=== PATIENT | male | born 1970 | race Caucasian/White ===

== ENCOUNTER 2020-09-08 14:53 | Emergency (ER) | payer OTHER, SELFPAY ==
[2020-09-08 15:29] VITALS: BP 154/114; PULSE 113; RESP 18; TEMP 35.4; O2SAT 99; BMI 23.6
--- NOTE | 2020-09-08 15:32 | PC.NURSE ---
Per EMS, pt was found walking, without a coat. When PD spoke with pt, pt unable to state where he was coming from or where he was going. Per EMS, pt is aXo x4. Pt, on arrival, stated he did not need to be in crisis unit, but was cooperative w/ changeover. VS from EMS: 155/100, p107. 02 sat 97. Pt denied any medical or surgical hx.
--- NOTE | 2020-09-08 15:55 | PC.NURSE ---
Patient is unable to provide any contact information, however, reported he gets his medication from [facility], pharmacy called/spoke with Germ[facility] and pharmacy provided contact phone numbers as requested of the patient, and [phone], both number tried twice with no response.
--- NOTE | 2020-09-08 18:07 | ED.GENADULT ---
HPI - General Adult General Chief complaint: Altered Mental Status Stated complaint: SECTION 12,FOUND WALKING BY POLICE Time Seen by Provider: 09/08/20 18:00 Source: patient Mode of arrival: ambulatory Limitations: no limitations History of Present Illness HPI narrative: Patient comes emergency room brought by police. Patient states that he recently moved from [place] with his , he is new in [facility], patient went out for a walk in [place] to look for an apartment, patient got lost, found a police station, showed him his ID, told him that he is new in town and needed directions to get back to the place where he is currently staying. Patient Section 12 time and brought him here. Patient is calm, cooperative, upset that he was brought in to the emergency room on a Section 12 when he only ask for directions. Patient is not suicidal, not homicidal, we have no records from the patient. Patient states that he has never attempted to hurt himself or others. Related Data Home Medications Medication Instructions Recorded Confirmed aripiprazole [Abilify] 20 mg PO BEDTIME 09/08/20 09/08/20 trazodone 225 mg PO BEDTIME 09/08/20 09/08/20 Allergies Allergy/AdvReac Type Severity Reaction Status Date / Time No Known Allergies Allergy Verified 09/08/20 15:38 Review of Systems Review of Systems: Constitutional : No Weight loss, No Fever, No Chills, No Night Sweats, No Fatigue, No Malaise ENT/Mouth : No Hearing loss, No Ear Pain, No Nasal Congestion, No Sinus Pain, No Hoarseness, No sore throat, No Rhinorrhea, No Swallowing Difficulty Eyes: No Eye Pain, No Swelling, No Redness, No Foreign Body, No Discharge, No Vision Changes Cardiovascular : No Chest Pain, No SOB, No Dyspnea on Exertion, No Orthopnea, No Edema, No Palpitations Respiratory : No Cough, No Sputum, No Wheezing, No Smoke Exposure, No Dyspnea Gastrointestinal : No Nausea, No Vomiting, No Diarrhea, No Constipation, No abdominal Pain, No Hematochezia, No Melena Genitourinary : no irregular bleeding, No Dysuria, No Urinary Frequency, No Hematuria, No Urinary Incontinence, No Urgency, No Flank Pain, No Urinary Flow Changes, No Hesitancy Musculoskeletal : No joint pain, No Myalgias, No Joint Swelling Skin : No Skin Lesions, No rash Neuro : No Weakness, No Numbness, No Paresthesias, No Loss of Consciousness, No Dizziness, No Headache Psych : No Anxiety/Panic, No Depression, No SI/HI/AH/VH, No Social Issues, Heme/Lymph: No Bruising, No Bleeding,No Lymphadenopathy Endocrine : No Polyuria, No Polydipsia, No Temperature Intolerance [facility], [facility] Social History Social History Advance Directives: No Advance Directives Information Provided: Yes Physical Exam Vital Signs: Vital Signs: Last Vital Signs Temp 95.7 F L 09/08/20 15:29 Pulse 113 H 09/08/20 15:29 Resp 18 09/08/20 15: BP 154/114 H 09/08/20 15: Pulse Ox 99 09/08/20 15:29 Body Mass Index 23.6 Appearance: Alert. Oriented X3. No acute distress. Eyes: Pupils equal, round and reactive to light. ENT: Pharynx normal. Neck: Normal inspection. Neck supple. No lymph nodes noted. No crepitus CVS: Normal heart rate and rhythm. Pulses normal. Normal S1 and S2 Respiratory: No respiratory distress. Breath sounds normal. No Wheezing. No rales Abdomen: Soft and nontender. No rigidity. No distention. good BS x4 Skin: Skin warm and dry. Normal skin color. Normal skin turgor. Extremities: No lower extremity edema. No lower extremity edema. No Lacerations. No Rash Neuro: Oriented X 3. No motor deficit. No sensory deficit. Moving all extermities. No slurred speech. Course Course Course Narrative: Patient is alert and oriented x4, normal speech, normal thought process, not suicidal or homicidal. Patient requesting to be discharged, he is wants to get home. After speaking with the patient, I do not see any reason to hold the patient in the behavioral health pod Discharge Plan Discharge Clinical Impression: Normal physical exam Patient Disposition: Home, Self-Care Prescriptions: No Action trazodone 150 mg Tablet 225 mg PO BEDTIME RF: 0 aripiprazole [Abilify] 20 mg Tablet 20 mg PO BEDTIME RF: 0 Interventions: ED Discharge Assessment Last Done: 09/08/20 18:10
[2020-09-08 18:21] LABS: Glucose Urine UA NEG (NEG); Leukocyte Esterase Urine NEG (NEG); Nitrite Urine NEG (NEG); PH 5.5 (5.0-8.0); Specific Gravity - Urine 1.025 (1.005-1.025); Urine Blood NEG (NEG); Urine Ketones 40 MG/DL (NEG); Urine Protein NEG (NEG-TRACE)
[2020-09-08 18:22] LABS: Appearance Urine CLEAR; Color Urine YELLOW
[2020-09-08 18:34] LABS: Bacteria Urine TRACE /LPF; RBC Urine 0 /HPF (0); WBC Urine 0 /HPF (0-4)
[2020-09-08 18:42] LABS: Amphetamine Screen Urine Not Detected (Not Detect); Barbiturates, Urine Not Detected (Not Detect); Benzodiazepines Screen Urine Not Detected (Not Detect); Cannabinoid Screen Urine Not Detected (Not Detect); Cocaine Screen Urine Not Detected (Not Detect); Opiate Screen Urine Not Detected (Not Detect); Phencyclidine Screen Urine Not Detected (Not Detect)
== END 2020-09-08 18:30 | disposition home or self-care (01) ==
PROVIDERS: Emergency Provider Emergency Medicine; PCP Internal Medicine
DX: Z00.00 Encounter for general adult medical examination without abnormal findings (principal)
CPT/HCPCS: 80307; 81001; 99283